=== PATIENT | female | born 1990 | race Caucasian/White ===

== ENCOUNTER 2024-01-17 08:35 | Emergency (ER) | payer OTHER, SELFPAY ==
[2024-01-17 08:56] VITALS: BP 102/56; PULSE 90; RESP 16; TEMP 36.9; O2SAT 98
--- NOTE | 2024-01-17 09:11 | ED.EYEPROB ---
HPI - Eye Problem General Chief complaint: Eye Problems Stated complaint: eyes red Time Seen by Provider: 01/17/24 09:02 Source: patient and RN notes reviewed Mode of arrival: ambulatory Limitations: no limitations History of Present Illness HPI Narrative: Patient presents today complaining of a redness to the right eye since yesterday with yellow drainage and itchiness. Symptoms started in the left eye this morning. Denies vision changes. Reports daughter had pinkeye last week and Nephew a contracted it this week. Patient does not wear contacts. Related Data Home Medications Medication Instructions Recorded Confirmed apremilast 30 mg tablet (Otezla) 30 mg PO BID 01/17/24 01/17/24 propranolol 20 mg tablet 20 mg PO BID 01/17/24 01/17/24 venlafaxine 75 mg capsule,extended 75 mg PO BID 01/17/24 01/17/24 release 24 hr Allergies Allergy/AdvReac Type Severity Reaction Status Date / Time Sulfa (Sulfonamide Allergy Intermediate Rash Verified 01/17/24 08:59 Antibiotics) Review of Systems Review of Systems: CONSTITUTIONAL: Denies body aches, fever, chills, or sweats. EYES: Denies visual changes. + bilateral eye redness and drainage ENT: Denies rhinorrhea, congestion, sore throat, or otalgia. CARDIOVASCULAR: Denies chest pain, palpitations, or edema. RESPIRATORY: Denies cough or dyspnea. GASTROINTESTINAL: Denies abdominal pain, nausea, vomiting, or diarrhea. GENITOURINARY: Denies dysuria or hematuria. SKIN: Denies rash, itching, or wounds. MUSCULOSKELETAL: Denies back pain, joint pain, or myalgia. NEUROLOGIC: Denies headache, numbness, tingling, or weakness. PSYCH: Denies depression or anxiety. PMFSH Comments At time of signature, I have reviewed and agree with nursing past medical, surgical, social and family history unless otherwise noted. Please see nursing chart for further information. There is no relevant family history pertinent to the presenting complaint Exam Narrative: GENERAL: Well-appearing, well-nourished, and in no acute distress. HEAD: Normocephalic, atraumatic. EYES: EOMI. PERRL. Left eye: Mildly injected conjunctiva with yellow crusting in the eyelashes. Right eye: Moderately injected conjunctiva with yellow purulent discharge and mild chemosis. Lids and lashes normal. ENT: Mucous membranes pink and moist. Nares clear. No rhinorrhea. NECK: Normal AROM. CHEST: No respiratory distress. EXTREMITIES: Normal range of motion. No edema. SKIN: Warm, dry, no rash. Capillary refill normal. Normal skin turgor. NEURO: No focal deficits. Alert and oriented x3. Gait steady. PSYCH: Normal affect. No signs of depression or anxiety. Course Course Level of Care: Express Care Visit Vital Signs Vital signs: Vital Signs Temperature 98.5 F 01/17/24 08:56 Pulse Rate 90 01/17/24 08:56 Respiratory Rate 16 01/17/24 08:56 Blood Pressure 102/56 L 01/17/24 08:56 Pulse Oximetry 98 01/17/24 08:56 Oxygen Delivery Room Air 01/17/24 08:56 Temperature 98.5 F 01/17/24 08:56 Pulse Rate 90 01/17/24 08:56 Respiratory Rate 16 01/17/24 08:56 Blood Pressure 102/56 L 01/17/24 08:56 Pulse Oximetry 98 01/17/24 08:56 Oxygen Delivery Room Air 01/17/24 08:56 Reviewed MDM - Eye Problem MDM Narrative Medical decision making narrative: Patient has been diagnosed with bilateral bacterial conjunctivitis and will be started on ofloxacin drops. Anticipatory guidance given. Differential Diagnosis Differential diagnosis: Likely corneal abrasion and conjunctivitis Critical Care Time Critical Care Time Critical Care Time: No Discharge Plan Discharge Clinical Impression: Acute bacterial conjunctivitis of both eyes Patient Disposition: Home, Self-Care Condition: Stable Instructions: Conjunctivitis (ED) Additional Instructions: Please use the eyedrops as directed. Wash hands frequently, especially before and after use of the drops. Follow-up with tess
== END 2024-01-17 09:19 | disposition home or self-care (01) ==
PROVIDERS: Emergency Provider Nurse Practitioner; PCP Nurse Practitioner Family
DX: H10.33 Unspecified acute conjunctivitis, bilateral (principal); L40.9 Psoriasis, unspecified; F41.9 Anxiety disorder, unspecified; F32.A Depression, unspecified
CPT/HCPCS: 99211; G0463